=== PATIENT | male | born 1960 | race Caucasian/White ===

== ENCOUNTER 2018-12-27 06:01 | Day surgery (SDC) | payer OTHER ==
[2018-12-27] MEDS ORDERED: GELATIN SIZE 100 SPONGE (07:29)
[2018-12-27] MEDS: CEFAZOLIN 2 GM/50 ML (PMX) 50 ML IVPB (07:30)
[2018-12-27] MEDS ORDERED: IOHEXOL 300MG/ML 30 ML BTL (07:40)
[2018-12-27] MEDS ORDERED: PROPOFOL 20 ML (08:16)
[2018-12-27] MEDS ORDERED: MIDAZOLAM 1 MG/ML 2 ML INJ (08:16)
[2018-12-27] MEDS ORDERED: ROCURONIUM 50 MG INJ (08:16)
[2018-12-27] MEDS ORDERED: CEFAZOLIN 1 GM INJ ×2 (08:16)
[2018-12-27] MEDS ORDERED: PROPOFOL 200 MG INJ (08:16)
[2018-12-27] MEDS ORDERED: LABETALOL HCL 20MG INJ (08:39)
[2018-12-27] MEDS ORDERED: hydrALAzine 20 MG INJ (08:39)
[2018-12-27] MEDS ORDERED: ONDANSETRON 4 MG INJ (08:42)
[2018-12-27] MEDS ORDERED: METOCLOPRAMIDE 10 MG INJ (08:42)
[2018-12-27] MEDS ORDERED: DEXAMETHASONE 4 MG/ML 5 ML INJ (08:43)
[2018-12-27] MEDS: BUPIVACAINE 0.25% (MPF) 30 ML INJ (09:28)
[2018-12-27] MEDS: BUPIVACAINE 0.5%/EPI (SDV) 30 ML INJ (09:28)
[2018-12-27] MEDS: FENTAnyl 50 MCG/ML VIAL (09:29)
[2018-12-27] MEDS: THROMBIN 5000 UNIT (RECOTHROM) VIAL (09:29)
[2018-12-27] MEDS: HEMOSTATIC MATRIX SYG ZFS (09:29)
[2018-12-27] MEDS: POLYMYXIN/BACITRACIN 1L IRRIG (09:29)
[2018-12-27] MEDS ORDERED: SUGAMMADEX SODIUM 200 MG/2 ML VIAL IV (09:50)
[2018-12-27] MEDS ORDERED: LABETALOL HCL 20MG INJ IV (10:00)
[2018-12-27] MEDS ORDERED: DIPHENHYDRAMINE 50 MG INJ IV ×2 (10:00→10:30)
[2018-12-27] MEDS ORDERED: METOCLOPRAMIDE 10 MG INJ IV (10:00)
[2018-12-27] MEDS ORDERED: MEPERIDINE 25 MG INJ IV (10:00)
[2018-12-27] MEDS ORDERED: EPHEDrine 25 MG/5 ML SYG IV (10:00)
[2018-12-27] MEDS ORDERED: HYDROmorphONE 1 MG/5 ML IV SYRINGE IV (10:00)
[2018-12-27] MEDS ORDERED: OXYCODONE/ACETAMINOPHEN (5/325) TAB PO (10:00)
[2018-12-27] MEDS ORDERED: FENTAnyl 50 MCG/ML VIAL IV ×3 (10:00)
[2018-12-27] MEDS ORDERED: hydrALAzine 20 MG INJ IV (10:00)
[2018-12-27] MEDS: ONDANSETRON 4 MG INJ IV (10:26)
[2018-12-27] MEDS: HYDROmorphONE 1 MG/5 ML IV SYRINGE IV ×2 (10:26→10:44)
[2018-12-27] MEDS ORDERED: NALOXONE (0.4 MG/ML) INJ IV (10:30)
[2018-12-27] MEDS ORDERED: ACETAMINOPHEN 325 MG TAB PO (10:30)
[2018-12-27] MEDS ORDERED: ONDANSETRON 4 MG INJ IV (10:30)
[2018-12-27] MEDS ORDERED: HYDROmorphONE 0.5 MG/0.5 ML SYG IV (10:30)
[2018-12-27] MEDS ORDERED: BISACODYL 10 MG SUPP PR (10:30)
[2018-12-27] MEDS ORDERED: CYCLOBENZAPRINE 10 MG TAB PO (10:30)
[2018-12-27] MEDS ORDERED: PROCHLORPERAZINE 10 MG TAB PO (10:30)
[2018-12-27] MEDS ORDERED: DIPHENHYDRAMINE 25 MG CAP PO (10:30)
[2018-12-27] MEDS ORDERED: HYDROCODONE/APAP (5/325) TAB PO ×2 (10:30)
[2018-12-27] MEDS: CEFAZOLIN 1 GM/50 ML (PMX) 50 ML IVPB (10:37)
[2018-12-27] MEDS: OXYCODONE/ACETAMINOPHEN (5/325) TAB PO (10:50)
[2018-12-27] MEDS: HEPARIN 1000 UNITS/ML 10 ML INJ (12:36)
[2018-12-27] MEDS: CA CHLORIDE 10% 10 ML SYRINGE (12:36)
[2018-12-27] MEDS ORDERED: SUCCINYLCHOLINE CHLORIDE 100 MG/5 ML SYG IV (13:08)
[2018-12-27] MEDS ORDERED: DOCUSATE SODIUM 100 MG CAP PO (21:00)
[2018-12-28] MEDS ORDERED: PANTOPRAZOLE 40 MG INJ IV (06:00)
== END 2018-12-27 13:14 | disposition home or self-care (01) ==
LOC: SDS 06:01
DX: M51.16 Intervertebral disc disorders with radiculopathy, lumbar region (principal)
CPT/HCPCS: 63047; 72100; 86850; 86860; 86870; 86880; 86900; 86901; 86902; 86906; 86970; 86971; 86978; 86999; 88304; 97162